=== PATIENT | male | born 1955 | race Hispanic/Latino ===

== ENCOUNTER → 2017-10-29 | Outpatient (CLI) | payer OTHER ==
[~2017-10-29] MED LIST: LISI-613 PO; TYL3B PO
== END | disposition home or self-care (01) ==
LOC: RAH 16:25
PROVIDERS: ATTEND Internal Medicine
DX: M79.672 Pain in left foot (principal)
CPT/HCPCS: 73630

== ENCOUNTER 2022-09-28 14:43 | Emergency (ER) | payer OTHER, MEDICARE ==
[~2022-09-28] VITALS: Ht 182.9 cm; Wt 88.5 kg
[~2022-09-28 14:43] MED LIST changes: -LISI-613 PO; +LISI20TA24 PO
[2022-09-28 15:39] LABS: BASOPHILS % (AUTO) 0.1 % (0.0-5.0); EOSINOPHILS % (AUTO) 0.1 % (0.0-8.0); HEMATOCRIT 42.6 % (42-54); LYMPHOCYTES % (AUTO) 10.3 % (21.0-51.0); MEAN CORPUSCULAR HEMOGLOBIN 31.5 pg (27.0-33.0); MEAN CORPUSCULAR HGB CONC 35.2 g/dL (32.0-36.0); MEAN CORPUSCULAR VOLUME 89.5 fL (79-99); MONOCYTES % (AUTO) 6.1 % (3.0-13.0); NEUTROPHILS % (AUTO) 82.9 % (40.0-77.0); PLATELET COUNT (AUTO) 230 K/uL (130-400); RED BLOOD CELL COUNT(AUTO) 4.76 MIL/uL (4.50-6.20); WHITE BLOOD COUNT (AUTO) 10.8 K/uL (4.8-10.8)
[2022-09-28 15:58] LABS: CREATININE 0.8 mg/dL (0.5-1.5); POTASSIUM 4.1 mmol/L (3.5-5.1)
[2022-09-28 16:16] LABS: ALBUMIN 3.9 g/dL (3.5-5.0); TOTAL PROTEIN, SERUM 7.6 g/dL (6.0-8.3)
[2022-09-28] MEDS ORDERED: LIDOCAINE HCL 2% VISCOUS 15 ML UDCUP PO ONE (19:30)
[2022-09-28] MEDS ORDERED: MAG/ALUM/SIMETH 30 ML UDCUP PO ONE (20:00)
[2022-09-28] MEDS ORDERED: DICYCLOMINE HCL 10 MG/5 ML ML PO SCH (20:00)
[2022-09-28 20:01] VITALS: BP 146/62
== END 2022-09-28 20:12 | disposition home or self-care (01) ==
LOC: EDH 14:43
DX: K29.70 Gastritis, unspecified, without bleeding (principal); Z98.890 Other specified postprocedural states
CPT/HCPCS: 36415; 71045; 80053; 83690; 84484; 85025; 93005

== ENCOUNTER → 2022-10-12 | Outpatient (CLI) | payer OTHER, MEDICARE | END | disposition home or self-care (01) | LOC: RAH 09:43 | DX: K80.20 Calculus of gallbladder without cholecystitis without obstruction (principal); N28.1 Cyst of kidney, acquired; K29.00 Acute gastritis without bleeding | CPT/HCPCS: 76700 ==

== ENCOUNTER 2023-01-25 06:57 | Day surgery (SDC) | payer OTHER, MEDICARE ==
[2023-01-21 16:48] LABS: BASOPHILS # (AUTO) 0.04 K/uL (0.00-0.20); BASOPHILS % (AUTO) 0.7 % (0.0-5.0); EOSINOPHILS # (AUTO) 0.06 K/uL (0.00-0.70); HEMATOCRIT 40.7 % (42-54); IMMATURE GRANULOCYTE ABSOLUTE 0.01 K/uL (0-1); LYMPHOCYTES # (AUTO) 1.2 K/uL (1.0-4.8); LYMPHOCYTES % (AUTO) 20.5 % (21.0-51.0); MEAN CORPUSCULAR HEMOGLOBIN 31.7 pg (27.0-33.0); MEAN CORPUSCULAR HGB CONC 33.9 g/dL (32.0-36.0); MEAN CORPUSCULAR VOLUME 93.3 fL (79-99); MONOCYTES # (AUTO) 0.6 K/uL (0.1-1.0); MONOCYTES % (AUTO) 9.8 % (3.0-13.0); NEUTROPHILS # (AUTO) 4.1 K/uL (1.8-7.7); NEUTROPHILS % (AUTO) 67.8 % (40.0-77.0); PLATELET COUNT (AUTO) 212 K/uL (130-400); RED BLOOD CELL COUNT(AUTO) 4.36 MIL/uL (4.50-6.20); RED CELL DISTRIBUTION WIDTH 12.5 % (11.0-15.5)
[2023-01-21 17:02] LABS: INR 0.94 (0.85-1.15)
[2023-01-21 17:03] LABS: PARTIAL THROMBOPLASTIN TIME 26.5 SEC (26.3-35.5); POTASSIUM 4.6 mmol/L (3.5-5.1)
[2023-01-23 18:30] VITALS: BP 134/77; PULSE 73; RESP 18
[~2023-01-25] VITALS: Ht 180.3 cm; Wt 90.5 kg
[2023-01-25] VITALS (19 sets, daily range): BP systolic 104–140; BP diastolic 68–84; PULSE 60–78; RESP 12–20
[~2023-01-25 06:57] MED LIST changes: +AEC81 PO; +ATOR10 PO; -TYL3B PO
[2023-01-25] MEDS ORDERED: CEFAZOLIN SODIUM 2 GM VIAL ONE (07:49)
[2023-01-25] MEDS ORDERED: LACTATED RINGERS 1000ML 1,000 ML IV ONE (07:50)
[2023-01-25] MEDS ORDERED: ROCURONIUM 10MG/1ML SYR 10 MG/ML ML ONE (08:22)
[2023-01-25] MEDS ORDERED: PROPOFOL 10 MG/ML 20ML VIAL IV ONE (08:22)
[2023-01-25] MEDS ORDERED: LIDOCAINE PF 100MG/5ML (2%) SYRINGE 5ML ONE (08:22)
[2023-01-25] MEDS ORDERED: MIDAZOLAM HCL 1 MG/ML 2ML VIAL ONE (08:22)
[2023-01-25] MEDS ORDERED: FENTANYL CITRATE PF 50 MCG/1 ML 2ML VIAL ONE ×3 (08:23→10:23)
[2023-01-25] MEDS ORDERED: ROPIVACAINE 0.5% 5MG/ML 30ML IJ ONE (08:24)
[2023-01-25] MEDS ORDERED: IOHEXOL-350 50ML VIAL IV ONE (08:30)
[2023-01-25] MEDS ORDERED: BUPIVACAINE/PF 0.5% 30ML VIAL ONE (08:36)
[2023-01-25] MEDS ORDERED: ONDANSETRON 4MG INJ ONE (09:08)
[2023-01-25] MEDS ORDERED: DEXAMETHASONE SOD PHOSPHATE 4 MG/ML 1ML VIAL ONE (09:08)
[2023-01-25] MEDS ORDERED: KETOROLAC 30MG VIAL (30MG/ML) ONE (09:32)
[2023-01-25] MEDS ORDERED: NEOSTIGMINE 5MG/5ML SYR IV ONE (09:37)
[2023-01-25] MEDS ORDERED: GLYCOPYRROLATE 1 MG/5 ML SYRINGE ONE (09:37)
[2023-01-25] MEDS ORDERED: MEPERIDINE-PF 25 MG/ML SYG ONE (10:07)
== END 2023-01-25 11:55 | disposition home or self-care (01) ==
LOC: DAH 06:57
PROVIDERS: ATTEND Surgery
DX: K80.10 Calculus of gallbladder with chronic cholecystitis without obstruction (principal); Z20.822 Contact with and (suspected) exposure to COVID-19; K82.8 Other specified diseases of gallbladder; I10 Essential (primary) hypertension; I49.3 Ventricular premature depolarization; Z79.01 Long term (current) use of anticoagulants
CPT/HCPCS: 80048; 85025; 85610; 85730; 87426; 36415; 93005; 47563; 74300; A6260; J1100; A4663; J7030; C1758; J7120; J3010 ×3; J3490 ×2; J2710; J2001; J2250; J2704; J2405; J1885; J2175; J2795; Q9967; J0690; A4649 ×2; A4930 ×2; A4215; A4223; A4222; A4221; A4600